=== PATIENT | female | born 1935 | race Two or more races ===

== ENCOUNTER 2018-11-11 20:47 | Inpatient (IN) | payer OTHER ==
[~2018-11-11] VITALS: Ht 152.4 cm; Wt 95.9 kg
[2018-11-11 20:53] VITALS: Ht 152.4 cm; Wt 95.9 kg
[2018-11-11 22:28] LABS: PLATELET COUNT 230 x10^3mcL (130-400); RED CELL DISTRIBUTION WIDTH 13.1 % (11.5-14.5)
[2018-11-11 22:29] LABS: BASOPHIL % 0 % (0-2)
[2018-11-11 22:47] LABS: ALBUMIN 3.5 g/dL (3.4-5.0); ALKALINE PHOSPHATASE 136 U/L (46-116); ALT/SGPT 14 U/L (14-59); AMYLASE 46 U/L (25-115); AST/SGOT 14 U/L (15-37); BILIRUBIN TOTAL 0.4 mg/dL (0.20-1.00); CARBON DIOXIDE 27.5 mmol/L (21-32); CHLORIDE SERUM 100 mmol/L (98-107); CHOLESTEROL 143 mg/dL (<200); CREATININE SERUM 0.9 mg/dL (0.6-1.0); GLUCOSE SERUM 137 mg/dL (74-106); HDL CHOLESTEROL 55 mg/dL (40-60); LIPASE 108 IU/L (73-393); POTASSIUM SERUM 3.6 mmol/L (3.5-5.1); SODIUM SERUM 138 mmol/L (136-145); T4(THYROXINE) 7.3 ug/dL (4.7-13.3)
[2018-11-11 22:48] LABS: TOTAL PROTEIN, SERUM 8.3 g/dL (6.4-8.2)
[2018-11-12] VITALS (7 sets, daily range): BP systolic 115–158; BP diastolic 74–91
[2018-11-12 00:44] LABS: UA SPECIFIC GRAVITY >=1.030 (1.005-1.035); microscopic required? YES; urine erythrocyte 1+ (NEGATIVE)
[2018-11-12 01:12] LABS: MAGNESIUM 1.8 mg/dL (1.8-2.4); PHOSPHOROUS 3.6 mg/dL (2.5-4.9)
[2018-11-12] MEDS ORDERED: CORE25 PO (02:07)
[2018-11-12] MEDS ORDERED: LASIX20 MG PO (02:08)
[2018-11-12] MEDS ORDERED: LOSARTAN POTAS100 M1 PO (02:08)
[2018-11-12] MEDS ORDERED: SIMVASTATIN40 M1 PO (02:08)
[2018-11-12] MEDS ORDERED: XARELTO20 M1 PO (02:09)
[2018-11-12 06:42] LABS: PLATELET COUNT 242 x10^3mcL (130-400); RED CELL DISTRIBUTION WIDTH 13.2 % (11.5-14.5)
[2018-11-12 07:06] LABS: BASOPHIL % 0 % (0-2)
[2018-11-12 07:13] LABS: CALCIUM 8.8 mg/dL (8.5-10.1); CHLORIDE SERUM 100 mmol/L (98-107); CREATININE SERUM 0.9 mg/dL (0.6-1.0); GLUCOSE SERUM 167 mg/dL (74-106); POTASSIUM SERUM 3.4 mmol/L (3.5-5.1); SODIUM SERUM 137 mmol/L (136-145)
[2018-11-13 05:41] VITALS: BP 130/55
[2018-11-13 06:35] LABS: BASOPHIL % 0.1 % (0-2); PLATELET COUNT 262 x10^3mcL (130-400)
[2018-11-13 06:40] LABS: CARBON DIOXIDE 28.4 mmol/L (21-32); CHLORIDE SERUM 102 mmol/L (98-107); CREATININE SERUM 1.2 mg/dL (0.6-1.0); GLUCOSE SERUM 121 mg/dL (74-106); PHOSPHOROUS 4.1 mg/dL (2.5-4.9); POTASSIUM SERUM 4.2 mmol/L (3.5-5.1); SODIUM SERUM 139 mmol/L (136-145)
[2018-11-13 08:37] VITALS: BP 142/70
[2018-11-13 12:00] VITALS: BP 131/80
[2018-11-13 16:08] VITALS: BP 141/88
[2018-11-13 21:13] VITALS: BP 169/86
[2018-11-13 22:28] VITALS: BP 108/63
[2018-11-14 05:31] VITALS: BP 146/92
[2018-11-14 06:33] LABS: BASOPHIL % 0.3 % (0-2); PLATELET COUNT 237 x10^3mcL (130-400); RED CELL DISTRIBUTION WIDTH 13.6 % (11.5-14.5)
[2018-11-14 07:01] LABS: CALCIUM 8.5 mg/dL (8.5-10.1); CARBON DIOXIDE 28.5 mmol/L (21-32); CHLORIDE SERUM 100 mmol/L (98-107); CREATININE SERUM 1.1 mg/dL (0.6-1.0); GLUCOSE SERUM 93 mg/dL (74-106); POTASSIUM SERUM 3.6 mmol/L (3.5-5.1); SODIUM SERUM 136 mmol/L (136-145)
[2018-11-14 09:42] VITALS: BP 154/84
[2018-11-14] MEDS ORDERED: LEVAQUIN750 MG PO (09:57)
[2018-11-14 10:45] VITALS: BP 154/84
== END 2018-11-14 12:40 | disposition home or self-care (01) | DRG 194 ==
LOC: ED 20:47 → DU 11-12 00:35 → EDBEDREQSVC 11-12 00:36 → DU 11-12 01:38
PROVIDERS: Emergency Medicine; ADMIT Internal Medicine
DX: J18.9 Pneumonia, unspecified organism (principal); Z68.41 Body mass index [BMI] 40.0-44.9, adult; R06.03 Acute respiratory distress; I11.0 Hypertensive heart disease with heart failure; I50.9 Heart failure, unspecified; I48.91 Unspecified atrial fibrillation; R73.03 Prediabetes; E78.00 Pure hypercholesterolemia, unspecified; E66.01 Morbid (severe) obesity due to excess calories; Z79.01 Long term (current) use of anticoagulants; Z87.01 Personal history of pneumonia (recurrent); Z87.891 Personal history of nicotine dependence; Z66 Do not resuscitate
CPT/HCPCS: 36600; 82962; 83880; 87804; 90658; 97110-GP; 97112-GP; 97116-GP; J1956; J2930; J7030; J7613; J7620; J7644; Q0092

== ENCOUNTER 2019-06-26 13:30 | Emergency (ER) | payer OTHER, MEDICAID ==
[~2019-06-26] VITALS: Ht 152.4 cm; Wt 90.3 kg
[~2019-06-26 13:30] MED LIST: CORE25 PO; LASIX20 MG PO; LEVAQUIN750 MG PO; LOSARTAN POTAS100 M1 PO; SIMVASTATIN40 M1 PO; XARELTO20 M1 PO
[2019-06-26 13:34] VITALS: Ht 152.4 cm; Wt 90.3 kg
[2019-06-26 15:09] VITALS: BP 128/46
== END 2019-06-26 17:18 | disposition home or self-care (01) ==
LOC: ED 13:30
DX: S42.291A Other displaced fracture of upper end of right humerus, initial encounter for closed fracture (principal); I10 Essential (primary) hypertension; W18.39XA Other fall on same level, initial encounter; Y93.89 Activity, other specified; Y92.89 Other specified places as the place of occurrence of the external cause; Y99.8 Other external cause status

== ENCOUNTER 2019-09-01 22:58 | Inpatient (IN) | payer OTHER ==
[~2019-09-01] VITALS: Ht 144.8 cm; Wt 90.7 kg
[2019-09-01 23:05] VITALS: Ht 144.8 cm; Wt 90.7 kg
[2019-09-02] LABS: BASOPHIL % 0.1 % (0-2); PLATELET COUNT 253 x10^3mcL (130-400); RED CELL DISTRIBUTION WIDTH 13.3 % (11.5-14.5)
[2019-09-02 00:55] LABS: CALCIUM 8.7 mg/dL (8.5-10.1); CARBON DIOXIDE 29.8 mmol/L (21-32); CHLORIDE SERUM 101 mmol/L (98-107); CREATININE SERUM 0.9 mg/dL (0.6-1.0); GLUCOSE SERUM 154 mg/dL (74-106); POTASSIUM SERUM 4.2 mmol/L (3.5-5.1); SODIUM SERUM 136 mmol/L (136-145)
[2019-09-02 00:59] LABS: ALKALINE PHOSPHATASE 143 U/L (46-116); ALT/SGPT 16 U/L (14-59); AMYLASE 61 U/L (25-115); AST/SGOT 16 U/L (15-37); BILIRUBIN TOTAL 0.3 mg/dL (0.20-1.00); LIPASE 99 IU/L (73-393); TOTAL PROTEIN, SERUM 7.9 g/dL (6.4-8.2)
[2019-09-02 01:08] LABS: ALBUMIN 3.3 g/dL (3.4-5.0)
[2019-09-02 01:40] LABS: UA SPECIFIC GRAVITY 1.015 (1.005-1.035); microscopic required? YES; urine erythrocyte TRACE (NEGATIVE)
[2019-09-02 03:45] LABS: AMPHETAMINE QUAL UR NONE DETECTED (See below)
[2019-09-02 04:13] VITALS: BP 139/80
[2019-09-02 09:14] VITALS: BP 135/65
[2019-09-02 17:26] VITALS: BP 128/52
[2019-09-02 20:46] VITALS: BP 155/75
[2019-09-03 06:06] VITALS: BP 140/77
[2019-09-03 06:31] LABS: BASOPHIL % 0.3 % (0-2); PLATELET COUNT 259 x10^3mcL (130-400); RED CELL DISTRIBUTION WIDTH 13.5 % (11.5-14.5)
[2019-09-03 06:52] LABS: CALCIUM 8.2 mg/dL (8.5-10.1); CARBON DIOXIDE 24.6 mmol/L (21-32); CHLORIDE SERUM 106 mmol/L (98-107); CREATININE SERUM 0.8 mg/dL (0.6-1.0); GLUCOSE SERUM 109 mg/dL (74-106); PHOSPHOROUS 3.2 mg/dL (2.5-4.9); SODIUM SERUM 139 mmol/L (136-145)
[2019-09-03 08:14] VITALS: BP 166/79
[2019-09-03 17:26] VITALS: BP 144/78
[2019-09-03 20:35] VITALS: BP 170/89
[2019-09-04 05:45] VITALS: BP 121/67
[2019-09-04 06:31] LABS: CARBON DIOXIDE 26.9 mmol/L (21-32); CHLORIDE SERUM 106 mmol/L (98-107); CREATININE SERUM 0.8 mg/dL (0.6-1.0); GLUCOSE SERUM 104 mg/dL (74-106); MAGNESIUM 1.7 mg/dL (1.8-2.4); PHOSPHOROUS 3.4 mg/dL (2.5-4.9); POTASSIUM SERUM 3.5 mmol/L (3.5-5.1); SODIUM SERUM 139 mmol/L (136-145)
[2019-09-04 06:46] LABS: BASOPHIL % 0.4 % (0-2); PLATELET COUNT 235 x10^3mcL (130-400); RED CELL DISTRIBUTION WIDTH 13.5 % (11.5-14.5)
[2019-09-04 10:48] VITALS: BP 151/89
[2019-09-04 16:44] VITALS: BP 149/67
[2019-09-04 21:30] VITALS: BP 147/83
[2019-09-05 05:32] VITALS: BP 116/51
[2019-09-05 06:46] LABS: BASOPHIL % 0.1 % (0-2); PLATELET COUNT 232 x10^3mcL (130-400); RED CELL DISTRIBUTION WIDTH 13.6 % (11.5-14.5)
[2019-09-05 06:54] LABS: CALCIUM 8.2 mg/dL (8.5-10.1); CARBON DIOXIDE 25.2 mmol/L (21-32); CHLORIDE SERUM 106 mmol/L (98-107); GLUCOSE SERUM 109 mg/dL (74-106); MAGNESIUM 1.5 mg/dL (1.8-2.4); PHOSPHOROUS 3.8 mg/dL (2.5-4.9); POTASSIUM SERUM 3.5 mmol/L (3.5-5.1); SODIUM SERUM 138 mmol/L (136-145)
[2019-09-05 08:40] VITALS: BP 140/50
[2019-09-05 16:40] VITALS: BP 109/55
[2019-09-05 20:59] VITALS: BP 131/81
[2019-09-06 04:42] VITALS: BP 135/48
[2019-09-06 06:26] LABS: BASOPHIL % 0.4 % (0-2); PLATELET COUNT 206 x10^3mcL (130-400); RED CELL DISTRIBUTION WIDTH 13.6 % (11.5-14.5)
[2019-09-06 06:41] LABS: CALCIUM 7.9 mg/dL (8.5-10.1); CARBON DIOXIDE 23.3 mmol/L (21-32); CHLORIDE SERUM 104 mmol/L (98-107); CREATININE SERUM 0.8 mg/dL (0.6-1.0); GLUCOSE SERUM 107 mg/dL (74-106); MAGNESIUM 1.9 mg/dL (1.8-2.4); PHOSPHOROUS 3.9 mg/dL (2.5-4.9); POTASSIUM SERUM 3.4 mmol/L (3.5-5.1); SODIUM SERUM 137 mmol/L (136-145)
[2019-09-06 09:46] VITALS: BP 124/50
[2019-09-06 17:00] VITALS: BP 108/56
[2019-09-06 20:34] VITALS: BP 128/57
[2019-09-07 06:07] VITALS: BP 121/66
[2019-09-07 06:17] LABS: BASOPHIL % 0.3 % (0-2); PLATELET COUNT 230 x10^3mcL (130-400); RED CELL DISTRIBUTION WIDTH 13.8 % (11.5-14.5)
[2019-09-07 06:41] LABS: CALCIUM 8.2 mg/dL (8.5-10.1); CARBON DIOXIDE 24.8 mmol/L (21-32); CHLORIDE SERUM 107 mmol/L (98-107); CREATININE SERUM 0.7 mg/dL (0.6-1.0); GLUCOSE SERUM 95 mg/dL (74-106); POTASSIUM SERUM 3.6 mmol/L (3.5-5.1); SODIUM SERUM 140 mmol/L (136-145)
[2019-09-07 09:32] VITALS: BP 137/75
[2019-09-07 11:42] VITALS: BP 137/75
[2019-09-07 13:02] VITALS: BP 139/45
== END 2019-09-07 16:19 | disposition home or self-care (01) | DRG 854 ==
LOC: ED 22:58 → MU 09-02 02:51 → DU 09-02 03:00 → MU 09-02 03:01
PROVIDERS: Emergency Medicine; General Practice; Surgery; ADMIT Internal Medicine
PROC: 0WBH0ZZ Excision of Retroperitoneum, Open Approach (ICD-10-PCS; 2019-09-04)
PROC: 0WUF0JZ Supplement Abdominal Wall with Synthetic Substitute, Open Approach (ICD-10-PCS; principal; 2019-09-04 08:00)
DX: A41.9 Sepsis, unspecified organism (principal); N39.0 Urinary tract infection, site not specified; E44.1 Mild protein-calorie malnutrition; Z68.41 Body mass index [BMI] 40.0-44.9, adult; K42.0 Umbilical hernia with obstruction, without gangrene; I48.91 Unspecified atrial fibrillation; E66.01 Morbid (severe) obesity due to excess calories; Z79.01 Long term (current) use of anticoagulants
CPT/HCPCS: C1781; C9113; G0378; J0330; J0690; J0696; J1650; J2405; J2704; J2710; J2765; J3010; J3475; J3490; J7030; J7120; Q0092